=== PATIENT | male | born 1990 | race Caucasian/White ===

== ENCOUNTER 2023-01-16 13:52 | Outpatient (CLI) | payer OTHER, SELFPAY ==
--- NOTE | 2023-01-16 14:09 | ECG_ITS ---
Measurements Intervals [place] Rate: 91 P: 60 LA: 147 QRS: 5 QRSD: 107 T: 60 QT: 330 QTc: 407 Interpretive Statements SINUS RHYTHM WITH SINUS ARRHYTHMIA NONSPECIFIC T-WAVE ABNORMALITY NO PREVIOUS ECG AVAILABLE FOR COMPARISON Electronically Signed On 01-17-2023 8:47:57 CDT by Talita Lindsey M.D.
== END 2023-01-16 13:53 | disposition home or self-care (01) ==
LOC: ANHIMG 13:54 → ANHCARD 13:55
PROVIDERS: PCP Family Medicine; Visit Provider Physician Assistant Medical
DX: E78.5 Hyperlipidemia, unspecified (principal); I10 Essential (primary) hypertension; R00.2 Palpitations
CPT/HCPCS: 93005